=== PATIENT | female | born 1995 | race African-American/Black ===

== ENCOUNTER 2017-04-28 19:03 | Emergency (ER) | payer SELFPAY ==
[~2017-04-28] VITALS: Ht 165.1 cm; Wt 81.0 kg
[2017-04-28] MEDS ORDERED: KETOROLAC 30MG/ML VIAL IV STA (19:17)
[2017-04-28] MEDS ORDERED: SODIUM CHLORIDE 0.9% 1,000 ML IV ONE (19:17)
[2017-04-28] MEDS ORDERED: LORAZEPAM 2MG/ML CPJ IV ONE (19:30)
[2017-04-28 19:43] LABS: BASOPHILS % 0.6 % (0.0-2.0); EOSINOPHILS % 0.5 % (0.0-5.0); HEMATOCRIT. 33.1 % (36.0-48.0); HEMOGLOBIN. 10.4 g/dL (12.0-16.0); LYMPHOCYTES % 26.6 % (20.0-50.0); MEAN CORPUSCULAR HEMOGLOBIN 20.7 pg (28.0-32.0); MEAN CORPUSCULAR VOLUME 65.6 fL (81.0-99.0); MEAN PLATELET VOLUME 7.5 fl (7.4-10.4); MONOCYTES % 9.1 % (2.0-8.0); NEUTROPHILS % 63.2 % (40.0-76.0); PLATELET 360 x1000/uL (130-400); RED BLOOD CELL COUNT 5.04 mill/uL (4.2-5.4); RED CELL DISTRIBUTION WIDTH 18.3 % (11.6-14.6)
[2017-04-28 19:49] LABS: CHLORIDE 104 mEq/L (98-107); INR 1.1; PROTHROMBIN TIME 11.2 sec (9.4-11.6)
[2017-04-28 19:57] LABS: CARBON DIOXIDE 26 mEq/L (21-32); ETHANOL BLOOD < 10 mg/dL
[2017-04-28 20:20] LABS: PLATELET ESTIMATE NORMAL
[2017-04-28 21:13] LABS: CLARITY URINE CLOUDY (CLEAR); COLOR URINE YELLOW (YELLOW); GLUCOSE URINE NEGATIVE (NEGATIVE); KETONES URINE NEGATIVE (NEGATIVE); LEUKOCYTE ESTERASE URINE 3+ (NEGATIVE); NITRITE URINE NEGATIVE (NEGATIVE); OCCULT BLOOD URINE NEGATIVE (NEGATIVE); PROTEIN URINE NEGATIVE (NEGATIVE); UROBILINOGEN URINE 0.2 E.U./dL (0.2-1.0)
[2017-04-28 21:40] LABS: *AMPHETAMINES SCREEN URINE NEGATIVE (NEGATIVE); *BARBITURATES SCREEN URINE NEGATIVE (NEGATIVE); *BENZODIAZEPINES SCREEN URINE NEGATIVE (NEGATIVE); *COCAINE SCREEN URINE NEGATIVE (NEGATIVE); CANNABINOID URINE SCREEN PRESUMTIVE POSITIVE (NEGATIVE); METHADONE URINE SCREEN NEGATIVE (NEGATIVE); OPIATES URINE SCREEN NEGATIVE (NEGATIVE); PHENCYCLIDINE URINE SCREEN NEGATIVE (NEGATIVE)
[2017-04-28 23:04] VITALS: BP 124/57
== END 2017-04-28 23:07 | disposition home or self-care (01) ==
LOC: ER 19:17
DX: N30.00 Acute cystitis without hematuria (principal); R07.9 Chest pain, unspecified; R00.2 Palpitations; F12.10 Cannabis abuse, uncomplicated
CPT/HCPCS: 36415; 71010; 80053; 80305; 81001; 85025; 85610; 93005; 96361; 96374; 96375; 99285; G0482; J1885; J2060; J7030; Z7610